=== PATIENT | female | born 1985 | race Caucasian/White ===

== ENCOUNTER 2018-09-23 13:06 | Inpatient (IN) | payer OTHER ==
[2018-09-23] MEDS ORDERED: NS / Oxytocin 40 units/1000ml 1,000 ML ONE (13:31)
[2018-09-23] MEDS ORDERED: Lidocaine 1% (PF) 30 ML VIAL ONE (13:31)
--- NOTE | 2018-09-23 13:43 | ER ---
DATE OF SERVICE: 09/23/2018 The time of initial evaluation was roughly 13:15. LOCATION: ER trauma bay 1. REASON FOR EVALUATION: We were called down to the ER "stat" for eminent delivery. This is a patient of Dr. Sammi Byrne. I arrived to ER trauma bay 1 about 5 minutes after being muñoz d to find the patient in trauma bay 1 with the ER team present as first responders. By cervical exam ination by Milana, our labor and delivery nurse, who arrived just a couple of minutes before I did, th ought that cervical exam was complete/complete 0 station/status post SROM, cephalic presentation. Fe gloria heart tones were in the 120s to 130s by bedside ultrasound performed by the ER physician. After confirming eminent delivery not likely, the patient was cleared for transport back up to Labor and De livery unit on the 3rd floor. The patient was taken to Labor and Delivery via stretcher without comp lication. We arrived in Labor and Delivery approximately [address] Sammi Byrne is en rou te. The patient is now being placed on the monitors in LDR bed 3.
[2018-09-23] MEDS ORDERED: Misoprostol 200 MCG TAB PR PRN (14:18)
[2018-09-23] MEDS ORDERED: Lidocaine 1% (PF) 30 ML VIAL SC PRN (14:18)
[2018-09-23] MEDS ORDERED: Carboprost 250 MCG/ML AMP IM PRN (14:18)
[2018-09-23] MEDS ORDERED: Ibuprofen 800 MG TAB PO PRN (14:18)
[2018-09-23] MEDS ORDERED: Methylergonovine 0.2 MG/ML VIAL IM PRN (14:18)
[2018-09-23] MEDS ORDERED: HYDROcodone/Acetaminophen 5/325 mg Tablet PO PRN ×2 (14:18→15:34)
[2018-09-23] MEDS ORDERED: NS / Oxytocin 40 units/1000ml 1,000 ML IV PRN (14:18)
--- NOTE | 2018-09-23 14:33 | OP ---
DATE OF DELIVERY: 09/23/2018 PREOPERATIVE DIAGNOSIS: Term intrauterine and bradycardia in the 70s. POSTOPERATIVE DIAGNOSES: Term intrauterine and bradycardia in the 70s as well as a right labial laceration. PROCEDURE PERFORMED: A vacuum-assisted vaginal delivery and laceration repair. SURGEON: Sammi Byrne M.D. ANESTHESIA: Local. ESTIMATED BLOOD LOSS: 480 mL BRIEF DELIVERY SUMMARY: This is a 33-year-old G1, now P1 who presented in active labor. She was com plete and complete and 0 station upon arrival to labor and delivery. She commenced pushing. With pu shing, there were repetitive late decelerations into the 70s. After several minutes of bradyca rdia, decision was made to apply a vacuum and perform vacuum-assisted vaginal delivery. statio n at the time of vacuum application was +3 to +4. The vacuum was applied and suction was taken into the green zone. With the next contraction, the patient resumed pushing and downward traction was artie lied on the vacuum with successful delivery of the vertex. Head was OA. There was no nuchal c ord. The vacuum was promptly removed. Shoulders and body easily followed and the baby was placed on mother's abdomen. Infant's Apgars were 8 at 1 minute and 9 at 5 minutes. Total vacuum application time was about 15 seconds. There were no pop offs and the baby delivered quite easily with traction. There was a right labial laceration, which was repaired in standard running fashion using 2-0 Vicry l suture under local anesthesia with excellent hemostasis. The placenta delivered spontaneously and intact with a 3-vessel umbilical cord. Cord gases were not sent due to delayed cord clamping and a v igorous infant. Cord blood was sent for analysis. Uterine fundus was firm following evacuation of t he placenta and some clots. Quantitative blood loss was 480 mL. Mom and baby were left with the ayanna se in excellent condition attempting to breast feed.
[2018-09-23 15:09] VITALS: BMI 28.5
[2018-09-23] MEDS ORDERED: NS / Oxytocin 40 units/1000ml 1,000 ML IV SCH (15:34)
[2018-09-23] MEDS ORDERED: Bisacodyl 10 MG SUPP PR PRN (15:34)
[2018-09-23] MEDS ORDERED: Milk Of Magnesia 30 ML UDCUP PO PRN (15:34)
[2018-09-23] MEDS ORDERED: Benzocaine/Menthol 20-0.5% 60 ML CAN TOP PRN (15:34)
[2018-09-23] MEDS ORDERED: Lanolin Ointment 7 GM TUBE TOP PRN (15:34)
[2018-09-23 18:30] LABS: #Eosinphils 0.3 thou/uL (0.0-0.7); #Lymphocytes 1.9 thou/uL (1.20-3.40); #Monocytes 0.7 thou/uL (0.11-0.59); #Neutrophils 8.6 thou/uL (1.40-6.50); %Basophils 0.4 % (0.0-1.0); %Eosinophils 2.3 % (0.0-10.0); %Lymphocytes 16.4 % (21.0-51.0); %Monocytes 6.3 % (0.0-10.0); %Neutrophils 74.6 % (42.0-75.0); Hemoglobin 12.3 g/dL (12.0-16.0); Mean Corpuscular HGB CONC 32.1 g/dL (32.0-36.0); Mean Corpuscular Hemoglobin 27.6 pg (27.0-31.0); Mean Corpuscular Volume 85.8 fL (78.0-98.0); Mean Platelet Volume 9.5 fL (7.4-10.4); Platelet Count 200 thou/uL (130-400); RBC Distribution Width 14.2 % (11.5-14.5); Red Blood Cell (RBC) Count 4.47 mill/uL (4.20-5.40); White Blood Cell (WBC) Count 11.5 thou/uL (4.8-10.8)
[2018-09-23 19:01] LABS: HBSAg Index 0.19 S/CO (0-0.99); Hep B Surf Ag Non-Reactive S/CO (NonReactive)
[2018-09-23] MEDS: Ferrous Sulfate 325 MG TAB PO SCH (20:08)
[2018-09-23] MEDS: Docusate Calcium (SURFAK) 240 MG CAP PO SCH (21:13)
[2018-09-23] MEDS ORDERED: Ibuprofen 800 MG TAB PO SCH (22:00)
[2018-09-23] MEDS: Ibuprofen 800 MG TAB PO SCH (23:03)
[2018-09-24] MEDS: Ibuprofen 800 MG TAB PO SCH ×2 (05:49→14:38)
[2018-09-24] MEDS ORDERED: Prenatal Vitamin 1 TAB PO SCH (09:00)
[2018-09-24 09:21] VITALS: BP 121/72; TEMP 97.9
[2018-09-24] MEDS: Ferrous Sulfate 325 MG TAB PO SCH (09:26)
[2018-09-24] MEDS: Docusate Calcium (SURFAK) 240 MG CAP PO SCH (10:18)
== END 2018-09-24 15:45 | disposition home or self-care (01) | DRG 807 ==
LOC: L&D/OP 13:06 → L&D 13:59 → 3SW 19:18
PROVIDERS: ADMIT Family Medicine; ATTEND Family Medicine
PROC: 10D07Z6 Extraction of Products of Conception, Vacuum, Via Natural or Artificial Opening (ICD-10-PCS; principal; 2018-09-23)
PROC: 4A0HXCZ Measurement of Products of Conception, Cardiac Rate, External Approach (ICD-10-PCS; 2018-09-23)
PROC: 0UQMXZZ Repair Vulva, External Approach (ICD-10-PCS; 2018-09-23)
DX: O76 Abnormality in fetal heart rate and rhythm complicating labor and delivery (principal); Z37.0 Single live birth; O70.0 First degree perineal laceration during delivery; Z3A.37 37 weeks gestation of pregnancy
CPT/HCPCS: 85025; 86900; 86901; 87340; 99285; J2001